=== PATIENT | female | born 1980 | race Two or more races ===

== ENCOUNTER 2024-07-24 06:25 | Inpatient (IN) ==
[2024-07-24] MEDS ORDERED: NUBAIN INJ 20 MG AMP IVP PRN (07:22)
[2024-07-24] MEDS ORDERED: REGLAN INJ 10 MG VIAL IVP PRN (07:22)
[2024-07-24] MEDS ORDERED: ZOFRAN INJ 4 MG VIAL IVP PRN (07:22)
[2024-07-24] MEDS: PITOCIN ONE (07:29)
[2024-07-24] MEDS: LR 1,000 ML IV 1,000 ML IV ONE (07:29)
[2024-07-24] MEDS: LR 1,000 ML IV 1,000 ML IV SCH (07:45)
[2024-07-24] MEDS: OXYTOCIN 20 UNIT/1,000 ML-NS 20 UNIT/1,000 ML PLAST..BAG IV PRN (07:50)
[2024-07-24 08:14] LABS: URIC ACID 4.2 mg/dL (2.6-6.0)
[2024-07-24 08:32] LABS: APPEARANCE,URINE SLIGHTLY HAZY (CLEAR); BILIRUBIN,URINE NEGATIVE (NEGATIVE); BLOOD/HEMOGLOBIN,URINE 1+ (NEGATIVE); COLOR,URINE YELLOW (YELLOW); GLUCOSE, URINE NEGATIVE (NEGATIVE); KETONES,URINE NEGATIVE (NEGATIVE); LEUKOCYTE ESTERASE ,URINE 2+ (NEGATIVE); NITRITES,URINE NEGATIVE (NEGATIVE); PROTEIN,URINE 2+ (NEGATIVE); UROBILINOGEN,URINE NORMAL (NORMAL)
[2024-07-24 08:34] LABS: BACTERIA,URINE TRACE /HPF (NEGATIVE); RBC,URINE 0-2 /HPF (0-3); SQUAMOUS EPITHELIAL CELL,UR FEW /HPF (NEGATIVE)
[2024-07-24] MEDS: APRESOLINE INJ 20 MG VIAL ONE (09:40)
[2024-07-24] MEDS: NUBAIN INJ 10 MG AMP ONE (15:17)
[2024-07-24] MEDS: BETADINE SOLN ONE (16:00)
[2024-07-24] MEDS: PITOCIN IVP ONE (16:20)
[2024-07-24] MEDS ORDERED: MILK OF MAGNESIA PO PRN (16:48)
[2024-07-24] MEDS ORDERED: DERMOPLAST PAIN RELIEF SPRAY TOP PRN (16:48)
[2024-07-24] MEDS ORDERED: MOTRIN TAB 800 MG PO PRN ×2 (16:48)
[2024-07-24] MEDS ORDERED: OXYTOCIN 20 UNIT/1,000 ML-NS 20 UNIT/1,000 ML PLAST..BAG IV SCH (17:00)
[2024-07-24] MEDS: GLUCOPHAGE XR 24-HR PO SCH (21:43)
[2024-07-24] MEDS: ACTOS PO SCH (21:43)
[2024-07-25 04:51] LABS: HEMATOCRIT 33.2 % (36.0-47.0); HEMOGLOBIN 11.1 g/dL (12.0-16.0)
[2024-07-25 08:42] VITALS: BP 132/60; PULSE 69; RESP 17; TEMP 98.6; O2SAT 98
[2024-07-25] MEDS: PRENATAL PLUS PO SCH (09:21)
== END 2024-07-25 18:00 | disposition home or self-care (01) | DRG 807 ==
LOC: LD 06:25 → MED/SURG 17:18
PROVIDERS: ADMIT Obstetrics & Gynecology Obstetrics; ATTEND Obstetrics & Gynecology Obstetrics
DX: Z3A.40 40 weeks gestation of pregnancy; O24.410 Gestational diabetes mellitus in pregnancy, diet controlled; Z37.0 Single live birth